=== PATIENT | male | born 1955 | race Caucasian/White ===

== ENCOUNTER 2017-06-09 13:10 | Inpatient (IN) | payer MEDICARE ==
[2017-06-09] VITALS (16 sets, daily range): BP systolic 107–143; BP diastolic 69–93; PULSE 62–145; RESP 14–20; TEMP 98–98.7; O2SAT 95–99
[~2017-06-09] VITALS: Ht 182.9 cm; Wt 104.8 kg
[2017-06-09] MEDS ORDERED: DILTIAZEM HCL 25 MG/5 ML VIAL IV PUSH ONE (13:30)
[2017-06-09] MEDS ORDERED: SODIUM CHLORIDE 0.9% FLUSH 10 ML FLUSH IVF PRN (13:30)
[2017-06-09] MEDS ORDERED: DILTIAZEM INJ 125 MG in SODIUM CHLORIDE 0.9% INJ 100 ML IV PRN (13:30)
--- NOTE | 2017-06-09 13:33 | PD ---
HPI Chief Complaint: Cardiac Complaint Time Seen by Provider: 13:16 Travel History International Travel<30 days: No Contact w/Intl Traveler<30days: No Traveled to known affect area: No History of Present Illness HPI 61-year-old male came to the emergency room with history of tachycardia that was noticed initially by him this morning when he tried to take his blood pressure. He noticed that his pulse rate was in the 190s. Patient says he was having some heartburn which made him take his blood pressure. He repeated this test at home and the heart rate was still in 180s to 190s when he decided to go see his primary care. He had a 12-lead EKG done at the primary care's office which showed narrow complex tachycardia with heart rate in 190. Patient was sent to the emergency room by EMS. However patient says this one stay put him in the ambulance and hooked him to the monitor his heart rate was down to the 80s. He also had slight headache but all the symptoms disappeared. No history of syncopal episode. No history of shortness of breath. Patient says that he has never had this kind of high heart rate in the past. When he was hooked up to our monitor his heart rate was in 140s to 160s and looks like atrial fibrillation. Blood pressure has been stable. Patient is awake and answering questions appropriately. His heartburn kind of chest discomfort was nonradiating. [facility] Past Medical History Narrative Medical List of his past medical, surgical, social and family history is reviewed from the nursing note. Social History Tobacco Use: No Allergies-Medications (Allergen,Severity, Reaction): Coded Allergies: lisinopril (Verified Allergy, Unknown, 06/09/17) headaches Comments List of his allergies reviewed from the nursing note. Reported Meds & Prescriptions Reported Meds & Active Scripts Active Reported Bactrim DS (Sulfamethoxazole-Trimethoprim) 800-160 Mg Tab 1 Tab PO BID Narrative Medication List of his home medications reviewed from the nursing note. Review of Systems Except as stated in HPI: all other systems reviewed are Neg Cardiovascular: Positive: Tachycardia Physical Exam Narrative GENERAL: Awake, alert, no obvious distress SKIN: Focused skin assessment warm/dry. HEAD: Atraumatic. Normocephalic. EYES: Pupils equal and round. No scleral icterus. No injection or drainage. ENT: No nasal bleeding or discharge. Mucous membranes pink and moist. NECK: Trachea midline. No JVD. CARDIOVASCULAR: Irregularly irregular rhythm, tachycardia. No murmur appreciated. RESPIRATORY: No accessory muscle use. Clear to auscultation. Breath sounds equal bilaterally. GASTROINTESTINAL: Abdomen soft, non-tender, nondistended. Hepatic and splenic margins not palpable. MUSCULOSKELETAL: No obvious deformities. No clubbing. No cyanosis. No edema. NEUROLOGICAL: Awake and alert. No obvious cranial nerve deficits. Motor grossly within normal limits. Normal speech. PSYCHIATRIC: Appropriate mood and affect; insight and judgment normal. Data Data Last Documented VS Vital Signs Date Time Temp Pulse Resp B/P (MAP) Pulse Ox O2 Delivery O2 Flow Rate FiO2 06/09/17 14:26 80 16 123/77 (92) 96 Room Air 06/09/17 13:15 98.3 Orders Orders Electrocardiogram (06/09/17 13:17) Basic Metabolic Panel (Bmp) (06/09/17 13:17) Ckmb (Isoenzyme) Profile (06/09/17 13:17) Complete Blood Count With Diff (06/09/17 13:17) Magnesium (Mg) (06/09/17 13:17) Prothrombin Time / Inr (Pt) (06/09/17 13:17) Act Partial Throm Time (Ptt) (06/09/17 13:17) Troponin I (06/09/17 13:17) Chest, Single Ap (06/09/17 13:17) Ecg Monitoring (06/09/17 13:17) Bilateral Bp Monitoring (06/09/17 13:17) Oximetry (06/09/17 13:17) Oxygen Administration (06/09/17 13:17) Sodium Chloride 0.9% Flush (Ns Flush) (06/09/17 13:30) Vital Signs (Adult) Q15MX4,Q4H (06/09/17 13:17) Lead Game Designer / Telemetry TASHA.Q8H (06/09/17 13:17) Cardiac Rhythm TASHA.Q8H (06/09/17 13:17) Notify Dr: Other (06/09/17 13:17) Diltiazem Inj (Cardizem Inj) (06/09/17 13:30) Diltiazem Inj (Cardizem Inj) (06/09/17 13:30) CKMB (06/09/17 13:20) CKMB% (06/09/17 13:20) Heparin Infusion TASHA.Q1H (06/09/17 14:12) Heparin Inj (Heparin Inj) (06/09/17 14:15) Heparin Inj (Heparin Inj) (06/09/17 20:15) Heparin Inj (Heparin Inj) (06/09/17 20:15) Heparin-D5w 25,000 U/250 Ml (Heparin-D5w (06/09/17 14:15) Act Partial Throm Time (Ptt) (06/09/17 21:12) Admit Order (Ed Use Only) (06/09/17 14:25) Labs Laboratory Tests Test 06/09/17 13:20 White Blood Count 5.4 TH/MM3 Red Blood Count 5.50 MIL/MM3 Hemoglobin 15.7 GM/DL Hematocrit 47.2 % Mean Corpuscular Volume 85.9 FL Mean Corpuscular Hemoglobin 28.5 PG Mean Corpuscular Hemoglobin Concent 33.2 % Red Cell Distribution Width 14.0 % Platelet Count 205 TH/MM3 Mean Platelet Volume 8.8 FL Neutrophils (%) (Auto) 67.0 % Lymphocytes (%) (Auto) 20.6 % Monocytes (%) (Auto) 9.0 % Eosinophils (%) (Auto) 2.9 % Basophils (%) (Auto) 0.5 % Neutrophils # (Auto) 3.6 TH/MM3 Lymphocytes # (Auto) 1.1 TH/MM3 Monocytes # (Auto) 0.5 TH/MM3 Eosinophils # (Auto) 0.2 TH/MM3 Basophils # (Auto) 0.0 TH/MM3 CBC Comment DIFF FINAL Differential Comment Prothrombin Time 10.3 SEC Prothromb Time International Ratio 0.9 RATIO Activated Partial Thromboplast Time 25.9 SEC Blood Urea Nitrogen 10 MG/DL Creatinine 1.02 MG/DL Random Glucose 100 MG/DL Calcium Level 8.6 MG/DL Magnesium Level 2.3 MG/DL Sodium Level 140 MEQ/L Potassium Level 4.0 MEQ/L Chloride Level 107 MEQ/L Carbon Dioxide Level 26.1 MEQ/L Anion Gap 7 MEQ/L Estimat Glomerular Filtration Rate 74 ML/MIN Total Creatine Kinase 355 U/L Creatine Kinase MB 10.4 NG/ML Creatine Kinase MB % 2.9 % Troponin I 0.22 NG/ML MDM Medical Decision Making Medical Screen Exam Complete: Yes Emergency Medical Condition: Yes Medical Record Reviewed: Yes Interpretation(s) Twelve-lead EKG was reviewed by me. Atrial fibrillation, RVR, normal axis. Heart rate of 137 bpm. Differential Diagnosis New-onset A. fib with RVR, atrial flutter with 2-1 block, ACS Narrative Course 2:34 PM blood test results are back and troponin is elevated. Patient was initially given 20 mg of Cardizem bolus with a drip. Once the troponin level was back I have ordered the heparin bolus and drip as well. Patient will need to be admitted [facility]. Current heart rate is in the 80s. Critical Care Narrative Aggregate critical care time was 45 minutes. Time to perform other separately billable procedures was not included in the critical care time. My time did not include minutes spent treating any other patients simultaneously or on activities that did not directly contribute to the patient's treatment. The services I provided to this patient were to treat and/or prevent clinically significant deterioration that could result in: A. fib with RVR, non-STEMI, Cardizem bolus and drip, heparin bolus and drip I provided critical care services requiring my management, as noted below: Chart data review, documentation time, medication orders and management, vital sign assessments/reviewing monitor data, ordering and reviewing lab tests, ordering and interpreting/reviewing x-rays and diagnostic studies, care of the patient and discussion of the patient with the admitting physicians. Procedures EKG Prior to Arrival: Yes Diagnosis Primary Impression: New onset a-fib Additional Impressions: Atrial fibrillation with RVR Non-STEMI (non-ST elevated myocardial infarction) Admitting Information Admitting Physician Requests: Admit Scripts Aspirin (Aspirin) 325 Mg Tab 325 MG PO DAILY for cad, #180 TAB 0 Refills Prov: Ha Kam MD 06/11/17 Atorvastatin (Atorvastatin) 40 Mg Tab 40 MG PO HS for cad, #30 TAB 3 Refills Prov: Ha Kam MD 06/11/17 Metoprolol Tartrate (Metoprolol Tartrate) 25 Mg Tab 25 MG PO Q12HR for cad, #60 TAB 3 Refills Prov: Ha Kam MD 06/11/17 Clopidogrel (Plavix) 75 Mg Tab 75 MG PO DAILY for cad, #30 TAB 3 Refills Prov: Ha Kam MD 06/11/17 Ann Gibbons MD Jun 09, 2017 13:33
[2017-06-09 13:40] LABS: AUTOMATED NEUTROPHIL # 3.6 TH/MM3 (1.8-7.7); BASOPHIL % 0.5 % (0.0-2.0); EOSINOPHIL # 0.2 TH/MM3 (0-0.4); EOSINOPHIL % 2.9 % (0.0-4.0); HEMATOCRIT 47.2 % (39.0-51.0); HEMO FLAGS DIFF FINAL; LYMPH % 20.6 % (9.0-44.0); LYMPHOCYTE # 1.1 TH/MM3 (1.0-4.8); MEAN CELL VOLUME 85.9 FL (80.0-100.0); MEAN CORPUSCULAR HEMOGLOBIN 28.5 PG (27.0-34.0); MEAN CORPUSCULAR HGB CONC 33.2 % (32.0-36.0); PLATELET COUNT 205 TH/MM3 (150-450); WHITE BLOOD COUNT 5.4 TH/MM3 (4.0-11.0)
--- NOTE | 2017-06-09 13:43 | RADRPT ---
EXAM DATE/TIME: 06/09/2017 13:32 [place] COMPARISON: No previous studies available for comparison. INDICATIONS : Chest discomfort today, feels like heart is beating too fast MEDICAL HISTORY : None. SURGICAL HISTORY : 2 cysts removed from middle of back last week ENCOUNTER: Initial ACUITY: 1 day PAIN SCORE: 4/10 LOCATION: Bilateral chest FINDINGS: A single view of the chest demonstrates the lungs to be symmetrically aerated without evidence of mas s, infiltrate or effusion. The cardiomediastinal contours are unremarkable. Osseous structures are intact. CONCLUSION: No acute disease. Romain Curry MD FACR on June 09, 2017 at 13:41 Board Certified Radiologist. This report was verified electronically.
[2017-06-09] MEDS ORDERED: BACT800T5 PO (13:44)
[2017-06-09 13:50] LABS: BICARBONATE 26.1 MEQ/L (21.0-32.0); MAGNESIUM 2.3 MG/DL (1.5-2.5)
[2017-06-09 13:52] LABS: APTT (PATIENT) 25.9 SEC (24.3-30.1); INTERNATIONAL NORMALIZED RATIO 0.9 RATIO; PROTHROMBIN TIME - PATIENT 10.3 SEC (9.8-11.6)
[2017-06-09 14:07] LABS: CKMB 10.4 NG/ML (0.5-3.6)
[2017-06-09] MEDS ORDERED: HEPARIN-D5W 25,000 U/250 ML 250 ML IV PRN (14:15)
[2017-06-09] MEDS ORDERED: HEPARIN SODIUM - IV 10,000 UNITS/10 ML VIAL IV ONE (14:15)
--- NOTE | 2017-06-09 14:55 | HHI.HP ---
HPI Service [facility] Hospitalists Primary Care Physician Deyvi Sandoval MD Admission Diagnosis A. dandre with RVR, non-STEMI Chief Complaint: heart racing Travel History International Travel<30 Days: No Contact w/Intl Traveler <30 Da: No Traveled to Known Affected Are: No History of Present Illness This is a 61 year old male patient with a past medical history which includes arthritis, DDD, dyslipidemia and HTN. Patient awoke this AM with the feeling of heartburn. Patient then checked his BP because of the heart burn and HR was between 180-190 bpm. Patient then proceeded to his PCP's office and there a 12- lead EKG showed narrow complex tachycardia with heart rate in 190bpm. EMS was called to transport patient to ER. However once EMS arrived their monitor revealed a heart rate in the 80s. Patient reports he then felt better, he no longer felt his heart racing or heart burn. Patient then decided to drive himself to the hospital. 12 lead EKG here at [facility] revealed Atrial Fibrillation RVR rate 137 bpm. Patient denies specific chest pain, radiation of heart burn, shortness of breath , feeling dizzy or lightheaded. Patient reports he had a similar sensation about 1 year ago when his and he passed out at that time. Patient's main concern is when he can go home to tend to his dog. Review of Systems Constitutional: DENIES: Fatigue, Fever, Chills Eyes: DENIES: Blurred vision, Diplopia, Vision loss Respiratory: DENIES: Cough, Sputum production, Shortness of breath Cardiovascular: COMPLAINS OF: Palpitations, DENIES: Chest pain, Dyspnea on Exertion, Lower Extremity Edema Gastrointestinal: DENIES: Abdominal pain, Constipation, Diarrhea Neurologic: DENIES: Abnormal gait, Localized weakness, Speech Problems Psychiatric: DENIES: Anxiety, Confusion, Depression Past Family Social History Past Medical History DDD, dyslipidemia and HTN- no longer on HTN medication after weight loss Past Surgical History Inguinal hernia repair Rotator cuff surgery umbilical hernia repair Reported Medications Bactrim DS (Sulfamethoxazole-Trimethoprim) 800-160 Mg Tab 1 Tab PO BID Allergies: Coded Allergies: lisinopril (Verified Allergy, Unknown, 06/09/17) headaches Active Ordered Medications Current Medications Medications (Trade) Dose Ordered Sig/Anny Route Start Time Stop Time Status Last Admin (NS Flush) 2 ml UNSCH PRN IVF 06/09/17 13:30 Diltiazem HCl 125 mg/Sodium Chloride 125 ml @ 5 mls/hr TITRATE PRN IV 06/09/17 13:30 06/09/17 13:32 (Heparin Inj) 5,000 units UNSCH PRN IV 06/09/17 20:15 (Heparin Inj) 2,500 units UNSCH PRN IV 06/09/17 20:15 Heparin Sodium/ Dextrose 250 ml @ 10 mls/hr TITRATE PRN IV 06/09/17 14:15 Family History noncontributory Social History rare ETOH use 1-2 drinks every few months denies tobacco use marijuana nightly denies other illicit drug use Physical Exam Vital Signs Vital Signs Date Time Temp Pulse Resp B/P (MAP) Pulse Ox O2 Delivery O2 Flow Rate FiO2 06/09/17 14:26 80 16 123/77 (92) 96 Room Air 06/09/17 14:20 100 16 121/80 (94) 95 Room Air 06/09/17 14:01 102 16 124/78 (93) 96 Room Air 06/09/17 13:32 98 135/86 06/09/17 13:20 20 95 Room Air 06/09/17 13:20 91 20 107/78 (88) 96 Room Air 06/09/17 13:15 98.3 145 20 135/86 (102) 96 Physical Exam GENERAL: This is a well-nourished, well-developed patient SKIN: two surgical incisions on back healing well sutures intact HEAD: Atraumatic. Normocephalic. No temporal or scalp tenderness. EYES: Extraocular motions intact. No scleral icterus. No injection or drainage. CARDIOVASCULAR: irregularly irregular tachycardic RESPIRATORY: Clear to auscultation. Breath sounds equal bilaterally. GASTROINTESTINAL: Abdomen soft, non-tender, nondistended. MUSCULOSKELETAL: Extremities without clubbing, cyanosis, or edema. No joint tenderness, effusion, or edema noted. No calf tenderness. Negative Homans sign bilaterally. NEUROLOGICAL: Awake and alert. No focal deficits noted. Motor and sensory grossly within normal limits. Five out of 5 muscle strength in all muscle groups. Normal speech. Laboratory Laboratory Tests Test 06/09/17 13:20 White Blood Count 5.4 Red Blood Count 5.50 Hemoglobin 15.7 Hematocrit 47.2 Mean Corpuscular Volume 85.9 Mean Corpuscular Hemoglobin 28.5 Mean Corpuscular Hemoglobin Concent 33.2 Red Cell Distribution Width 14.0 Platelet Count 205 Mean Platelet Volume 8.8 Neutrophils (%) (Auto) 67.0 Lymphocytes (%) (Auto) 20.6 Monocytes (%) (Auto) 9.0 Eosinophils (%) (Auto) 2.9 Basophils (%) (Auto) 0.5 Neutrophils # (Auto) 3.6 Lymphocytes # (Auto) 1.1 Monocytes # (Auto) 0.5 Eosinophils # (Auto) 0.2 Basophils # (Auto) 0.0 CBC Comment DIFF FINAL Differential Comment Prothrombin Time 10.3 Prothromb Time International Ratio 0.9 Activated Partial Thromboplast Time 25.9 Blood Urea Nitrogen 10 Creatinine 1.02 Random Glucose 100 Calcium Level 8.6 Magnesium Level 2.3 Sodium Level 140 Potassium Level 4.0 Chloride Level 107 Carbon Dioxide Level 26.1 Anion Gap 7 Estimat Glomerular Filtration Rate 74 Total Creatine Kinase 355 Creatine Kinase MB 10.4 Creatine Kinase MB % 2.9 Troponin I 0.22 Result Diagram: 06/09/17 1320 06/09/17 1320 Imaging Last Impressions Chest X-Ray 06/09/17 1317 Signed Impressions: Service Date/Time: Friday, June 09, 2017 13:32 - CONCLUSION: No acute disease. Romain Curry MD FACR Caprini VTE Risk Assessment Caprini VTE Risk Assessment: Mod/High Risk (score >= 2) Caprini Risk Assessment Model Point Value = 1 Point Value = 2 Point Value = 3 Point Value = 5 Age 41-60 Minor surgery BMI > 25 kg/m2 Swollen legs Varicose veins or History of unexplained or recurrent spontaneous Oral contraceptives or hormone replacement Sepsis (< 1 month) Serious lung disease, including pneumonia (< 1 month) Abnormal pulmonary function Acute myocardial infarction Congestive heart failure (< 1 month) History of inflammatory bowel disease Medical patient at bed rest Age 61-74 Arthroscopic surgery Major open surgery (> 45 min) Laparoscopic surgery (> 45 min) Malignancy Confined to bed (> 72 hours) Immobilizing plaster cast Central venous access Age >= 75 History of VTE Family history of VTE Factor V Leiden Prothrombin [id number] Lupus anticoagulant Anticardiolipin antibodies Elevated serum homocysteine Heparin-induced thrombocytopenia Other congenital or acquired thrombophilia Stroke (< 1 month) Elective arthroplasty Hip, pelvis, or leg fracture Acute spinal cord injury (< 1 month) Prophylaxis Regimen Total Risk Factor Score Risk Level Prophylaxis Regimen 0-1 Low Early ambulation 2 Moderate Order ONE of the following: *Sequential Compression Device (SCD) *Heparin 5000 units SQ BID 3-4 Higher Order ONE of the following medications: *Heparin 5000 units SQ TID *Enoxaparin/Lovenox 40 mg SQ daily (WT < 150 kg, CrCl > 30 mL/min) *Enoxaparin/Lovenox 30 mg SQ daily (WT < 150 kg, CrCl > 10-29 mL/min) *Enoxaparin/Lovenox 30 mg SQ BID (WT < 150 kg, CrCl > 30 mL/min) AND/OR *Sequential Compression Device (SCD) 5 or more Highest Order ONE of the following medications: *Heparin 5000 units SQ TID (Preferred with Epidurals) *Enoxaparin/Lovenox 40 mg SQ daily (WT < 150 kg, CrCl > 30 mL/min) *Enoxaparin/Lovenox 30 mg SQ daily (WT < 150 kg, CrCl > 10-29 mL/min) *Enoxaparin/Lovenox 30 mg SQ BID (WT < 150 kg, CrCl > 30 mL/min) AND *Sequential Compression Device (SCD) Assessment and Plan Problem List: (1) New onset a-fib ICD Codes: I48.91 - Unspecified atrial fibrillation Status: Acute Plan: New onset A fib RVR EKG reviewed and reveals A fib RVR rate 137 bpm troponin elevated 0.22, denies chest pain, possibly demand related will trend serial troponin and continue to monitor serial EKG if troponin rises will consult cardiology patient started on heparin drip in ER Patient also started on Cardizem drip in ER with bolus 2D echocardiogram ordered HTN patient reports he is no longer on medication after weight loss monitor BP trend Dyslipidemia not on home medications check fast lipid panel in AM healing surgical incision back wound care consult placed DVT prophylaxis patient on heparin drip (2) Atrial fibrillation with RVR ICD Codes: I48.91 - Unspecified atrial fibrillation Status: Acute (3) HTN (hypertension) ICD Codes: I10 - Essential (primary) hypertension (4) Dyslipidemia ICD Codes: E78.5 - Hyperlipidemia, unspecified Assessment and Plan Patient examined. Assessment and plan formulated with Niya ISABEL I agree with the above. afib/rvr. new onset. mild cp with elevated trop. tachycardia related vs nstemi. trend troponin. heparin. asa. cardizem gtt. will plan for cardiology consult. pt is possibly going to leave AMA.. Physician Certification 2 Midnight Certification Type: Admission for Inpatient Services Order for Inpatient Services The services are ordered in accordance with Medicare regulations or non- Medicare payer requirements, as applicable. In the case of services not specified as inpatient-only, they are appropriately provided as inpatient services in accordance with the 2-midnight benchmark. Estimated LOS (days): 3 days is the estimated time the patient will need to remain in the hospital, assuming treatment plan goals are met and no additional complications. Post-Hospital Plan: Home Niya Vazquez Jun 09, 2017 14:55 Ha Kam MD Jun 09, 2017 16:21
[2017-06-09] MEDS ORDERED: NALOXONE HCL 0.4 MG/ML AMP IV PUSH PRN (15:15)
[2017-06-09] MEDS ORDERED: MAGNESIUM HYDROXIDE SUSP 30 ML CUP PO PRN (15:15)
[2017-06-09] MEDS ORDERED: ACETAMINOPHEN 325 MG TAB PO PRN (15:15)
[2017-06-09] MEDS ORDERED: ONDANSETRON HCL 4 MG/2 ML VIAL IVP PRN (15:15)
[2017-06-09] MEDS ORDERED: SODIUM CHLORIDE 0.9% FLUSH 10 ML FLUSH IV FLUSH PRN (15:15)
[2017-06-09] MEDS ORDERED: HEPARIN SODIUM - IV 10,000 UNITS/10 ML VIAL IV PRN ×2 (20:15)
[2017-06-09] MEDS: DOCUSATE SODIUM 50 MG/SENNA 8.6 MG TAB PO SCH (21:00)
[2017-06-09] MEDS: SODIUM CHLORIDE 0.9% FLUSH 10 ML FLUSH IV FLUSH SCH (21:00)
[2017-06-09] MEDS ORDERED: ACETAMINOPHEN/HYDROcodone 325 MG/5 MG TAB PO PRN (21:15)
[2017-06-09] MEDS ORDERED: NITROGLYCERIN 0.4 MG SL 25 TABS/BTL SL PRN (21:15)
[2017-06-09] MEDS ORDERED: ASPIRIN 81 MG CHEW TAB CHEW ONE (21:15)
[2017-06-09] MEDS: TEMAZEPAM 15 MG CAP PO PRN (21:34)
[2017-06-09 22:14] LABS: APTT (PATIENT) 47.8 SEC (24.3-30.1)
[2017-06-10] VITALS (24 sets, daily range): BP systolic 121–154; BP diastolic 81–94; PULSE 58–85; RESP 16–20; TEMP 98–98.6; O2SAT 96–98
[2017-06-10 01:36] LABS: BASOPHIL % 0.5 % (0.0-2.0); EOSINOPHIL # 0.2 TH/MM3 (0-0.4); EOSINOPHIL % 3.2 % (0.0-4.0); HEMATOCRIT 44.4 % (39.0-51.0); HEMO FLAGS DIFF FINAL; LYMPHOCYTE # 2.3 TH/MM3 (1.0-4.8); MEAN CELL VOLUME 85.7 FL (80.0-100.0); MEAN CORPUSCULAR HEMOGLOBIN 29.1 PG (27.0-34.0); MEAN CORPUSCULAR HGB CONC 33.9 % (32.0-36.0); MONO % 9.1 % (0.0-8.0); NEUT % 55.2 % (16.0-70.0); PLATELET COUNT 190 TH/MM3 (150-450); RED BLOOD COUNT 5.18 MIL/MM3 (4.50-5.90); RED CELL DISTRIBUTION WIDTH 13.6 % (11.6-17.2); WHITE BLOOD COUNT 7.2 TH/MM3 (4.0-11.0)
[2017-06-10 01:48] LABS: BICARBONATE 25.9 MEQ/L (21.0-32.0); POTASSIUM 3.8 MEQ/L (3.5-5.1)
[2017-06-10 01:52] LABS: HDL CHOLESTEROL 48.6 MG/DL (40.0-60.0)
[2017-06-10 07:12] LABS: APTT (PATIENT) 42.3 SEC (24.3-30.1)
[2017-06-10] MEDS ORDERED: HEPARIN-NS/PF INJ 1,000 ML ONE (08:20)
[2017-06-10] MEDS ORDERED: SODIUM CHLORID 0.9% 500 ML INJ 500 ML ONE (08:20)
[2017-06-10] MEDS ORDERED: HEPARIN SODIUM - IV 10,000 UNITS/10 ML VIAL ONE (08:20)
[2017-06-10] MEDS ORDERED: NITROGLYCERIN INJ 5 ML ONE (08:20)
[2017-06-10] MEDS ORDERED: MIDAZOLAM HCL 2 MG/2 ML VIAL ONE ×3 (08:21→08:58)
--- NOTE | 2017-06-10 08:51 | HHI.PR ---
Subjective Remarks no cp or sob Objective Vitals heart reg lung cta abd s/nt ext no edema Vital Signs Date Time Temp Pulse Resp B/P (MAP) Pulse Ox O2 Delivery O2 Flow Rate FiO2 06/10/17 06:00 70 06/10/17 05:00 84 06/10/17 04:00 58 06/10/17 03:30 75 16 149/89 (109) 97 06/10/17 03:00 66 06/10/17 02:00 68 06/10/17 01:00 72 06/10/17 00:00 60 06/09/17 23:00 98.0 71 16 121/69 (86) 97 06/09/17 23:00 62 06/09/17 22:45 16 06/09/17 22:00 70 06/09/17 21:00 70 06/09/17 20:30 75 128/79 06/09/17 20:00 97 21 06/09/17 20:00 84 06/09/17 19:30 98.7 75 14 128/79 (95) 96 06/09/17 19:00 84 06/09/17 18:00 76 06/09/17 17:45 74 06/09/17 17:16 72 20 143/93 (110) 99 06/09/17 15:46 77 18 138/80 (99) 96 Room Air 06/09/17 15:45 06/09/17 14:30 117 16 123/83 (96) 96 Room Air 06/09/17 14:26 80 16 123/77 (92) 96 Room Air 06/09/17 14:20 100 16 121/80 (94) 95 Room Air 06/09/17 14:01 102 16 124/78 (93) 96 Room Air 06/09/17 13:32 98 135/86 06/09/17 13:20 20 95 Room Air 06/09/17 13:20 91 20 107/78 (88) 96 Room Air 06/09/17 13:15 98.3 145 20 135/86 (102) 96 Result Diagram: 06/10/1710006/10/17100 Imaging Last Impressions Chest X-Ray 06/09/17 1317 Signed Impressions: Service Date/Time: Friday, June 09, 2017 13:32 - CONCLUSION: No acute disease. Romain Curry MD FACR A/P Problem List: (1) New onset a-fib ICD Codes: I48.91 - Unspecified atrial fibrillation Status: Acute Plan: 1. new afib/rvr 2. nstemi 3. htn 4. hyperlipidemia pt currently on heparin gtt and cardizem gtt discussed with pt and dr [facility] today planned. will plan for conversion of cardizem to bb (2) Non-STEMI (non-ST elevated myocardial infarction) ICD Codes: I21.4 - Non-ST elevation (NSTEMI) myocardial infarction Status: Acute (3) Atrial fibrillation with RVR ICD Codes: I48.91 - Unspecified atrial fibrillation Status: Acute (4) HTN (hypertension) ICD Codes: I10 - Essential (primary) hypertension Status: Chronic (5) Dyslipidemia ICD Codes: E78.5 - Hyperlipidemia, unspecified Status: Chronic Ha Kam MD Jun 10, 2017 08:51
[2017-06-10] MEDS ORDERED: STERILE WATER FOR INJECTION 10 ML VIAL ONE (08:52)
[2017-06-10] MEDS ORDERED: BIVALIRUDIN 250 MG VIAL ONE (08:52)
[2017-06-10] MEDS: DOCUSATE SODIUM 50 MG/SENNA 8.6 MG TAB PO SCH ×2 (09:00→21:00)
[2017-06-10] MEDS ORDERED: NITROGLYCERIN 0.4 MG SL 25 TABS/BTL SL ONE (09:15)
[2017-06-10] MEDS ORDERED: CLOPIDOGREL 75 MG TAB ONE (09:19)
[2017-06-10] MEDS ORDERED: MISC INFORMATION XX ONE (09:30)
[2017-06-10] MEDS ORDERED: LIDOCAINE 2% JELLY 30 ML TUBE TOP PRN (09:30)
[2017-06-10] MEDS ORDERED: MORPHINE SULFATE 4 MG/ML INJ IV PUSH PRN (09:30)
--- NOTE | 2017-06-10 09:30 | CATHPROC ---
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 Equipment Time Wound/Ostomy Nurse Description Size Mfg Part Number Used/Scraped [id number] 08:51 [employer] CRITICAL CARE WIRE, Betabrand PROWATER 180CM 180CM Used *[id number] TRANSDUCER, TRUWAVE [id number] 08:21 TAPIA DELGADO * Used W/STOCKCOCK *[id number] BALLOON, 4.5 15[place] [id number] 09:08 [employer]ON SCIENTIFIC 4.5 15MM Used QUANTUM APEX MR *[id number] [phone] *[id number] [phone] *[id number] *[id number] [phone] *[id number] 08:21 [id number] INDUSTRIES PACK, CCL CUSTOM * Used *[id number] 08:21 Efficient Power Conversion SUPPORT, ARTERIAL ADULT 21996 *[id number] Used [id number] 08:21 MEDLINE PACER PEN, SKIN DUAL W/ RULER * Used *[id number] 08:59 MEDTRONIC BALLOON, 3.0 X 20MM EUPHORA 20MM Used *[id number] STENT, 3.5 38 RESOLUTE [id number] 09:04 MEDTRONIC 3.5 38 Used INTEGRITY RX *[id number] 09:00 Acousticeye 30 ANTHONY INDEFLATOR Used *[id number] BAND, RADIAL COMPRESSION TR [id number] 09:15 [employer] MEDICAL 29CM Used LARGE 29 *[id number] SHEATH, FR6 RADIAL PRELUDE 08:21 Acousticeye FR 6 [id number] Used EASE 11CM [id number] 08:21 Acousticeye WIRE, EXCHANGE 260CM 3MMJ 260CM Used *[id number] 08:21 [employer]COMED OMNIPAQUE, 350 MG, 150ML 150ML [id number] Used [id number] 08:21 [facility] BLANKET,WARM AIR CCL * Used *[id number] Equipment Model, Serial, Lot Number and Expiration Data Description Model Number Serial Number Lot Number Expiration Date STENT, 3.5 38 RESOLUTE [id number] 01-02-2019 INTEGRITY RX History: Allergies Allergy Reaction lisinopril History: Risk Factors Family History of Hypertension Dyslipidemia Previous HI Previous Heart Failure Premature CAD Yes Yes No Yes No Prior Valve Prior PCI Prior CABG Surgery No No No Cerebrovascular Peripheral Artery Chronic Lung On Dialysis Diabetes Disease Disease Disease No No No No No Labs Hgb (g/dl) Hct (%) WBC (l/cumm) Platelets (thousands) 11.60-17.00 35.00-51.00 4.00-11.00 150.00-450.00 15.1 44.4 7.2 190 Glucose (mg/dl) BUN (mg/dl) Creatinine (mg/dl) BUN:Creatinine (1:x) 74.00-106.00 7.00-18.00 0.50-1.30 10.00-20.00 89 12 0.9 13.3 Na (meq/l) K (meq/l) 136.00-145.00 3.50-5.10 140 3.8 INR (PTT:PT) 0.90-1.10 0.9 Medication Medication Total Dose (Bolus/Oral) Medication Total Dosage/Unit 1% XYLOCAINE 20 mL ANGIOMAX BOLUS 16 mL FENTANYL 150 mcg NITROGLYCERIN S/L 0.4 mg OXYGEN 2 l/min PLAVIX 600 mg RADIAL COCKTAIL 5 mL (Bolus) VERSED 6 mg Medications (Bolus/Oral) Medication Time Given Dosage/Unit Administered By Reason FENTANYL 06/10/2017 8:35:51 AM 50 mcg Rittenour, Maria Elena 50 mcg FENTANYL given in lab by Maria Elena Blair BSRN in Left Forearm via Peripheral IV. Ordered by Nithin Zamudio. VERSED 06/10/2017 8:36:11 AM 2 mg Rittenour, Maria Elena 2 mg VERSED given in lab by Maria Elena Blair BSRN in Left Forearm via Peripheral IV. Ordered by Nithin Branch. FENTANYL 06/10/2017 8:39:49 AM 50 mcg Rittenour, Maria Elena 50 mcg FENTANYL given in lab by Maria Elena Blair BSRN in Left Forearm via Peripheral IV. Ordered by Nithin Zamudio. 1% XYLOCAINE 06/10/2017 8:40:42 AM 20 mL Nithin Zamudio 20 mL 1% XYLOCAINE given in lab by Nithin Zamudio in Right Radial via Subcutaneous. Ordered by Nithin Zamudio. VERSED 06/10/2017 8:41:40 AM 2 mg Rittenkayla, Maria Elena 2 mg VERSED given in lab by Maria Elena Blair BSRN in Left Forearm via Peripheral IV. Ordered by Nithin Branch. RADIAL COCKTAIL 06/10/2017 8:42:54 AM 5 mL (Bolus) Nithin Zamudio 5 mL (Bolus) RADIAL COCKTAIL given in lab by Nithin Zamudio in Right Radial via Radial. Using [Soluti on Name]. Ordered by Nithin Zamudio. 200 NITRO OXYGEN 06/10/2017 8:45:36 AM 2 l/min Maria Elena Blair 2 l/min OXYGEN given in lab by Maria Elena Blair BSRN via Nasal. Ordered by Nithin Zamudio. ANGIOMAX BOLUS 06/10/2017 8:55:13 AM 16 mL Maria Elena Blair 16 mL ANGIOMAX BOLUS given in lab by Maria Elena Blair BSRN in Left Forearm via Peripheral IV. Ordere d by Nithin Zamudio. VERSED 06/10/2017 8:59:41 AM 2 mg Rittenkayla, Maria Elena 2 mg VERSED given in lab by Maria Elena Blair BSRN in Left Forearm via Peripheral IV. Ordered by Nithin Branch. FENTANYL 06/10/2017 9:01:00 AM 50 mcg Anastasiyatenkayla, Maria Elena 50 mcg FENTANYL given in lab by Maria Elena Blair BSRN in Left Forearm via Peripheral IV. Ordered by Nithin Zamudio. NITROGLYCERIN S/L 06/10/2017 9:16:01 AM 0.4 mg Rossy, Maria Elena 0.4 mg NITROGLYCERIN S/L given in lab by Maria Elena Blair BSRN via Sublingual. Ordered by Jarad Zamudio. PLAVIX 06/10/2017 9:22:49 AM 600 mg Anastasiyatenkayla, Maria Elena 600 mg PLAVIX given in lab by Maria Elena Blair BSRN via Oral. Ordered by Nithin Zamudio. Medication (Drip) Medication Time Given Dosage/Unit Concentration/Unit Diluent (ml) Solution ANGIOMAX DRIP 06/10/2017 8:57:47 AM 1.75 mg/kg/hr 250 mg 50 NaCl .9 1.75 mg/kg/hr ANGIOMAX DRIP given in lab by Maria Elena Blair BSRN in Left Forearm via Peripheral IV. Pump/Drip Flow = 36.72 ml/hr using NaCl .9 with a concentration of 250 mg in 50 ml. Ordered by Nithin Zamudio. CARDIZEM 06/10/2017 8:21:45 AM 10 mL/hr mL Patient arrived on 10 mL/hr CARDIZEM given by yumiko calderon in Right Antecubital via Peripheral IV . Pump/Drip Flow = 0 ml/hr using [Solution Name]. Ordered by Nithin Zamudio. IV Solutions 06/10/2017 8:21:49 AM 0 mL (IV) 500 NaCl .9 IV Solutions given in lab by Maria Elena Blair BSRN in Left Forearm via Peripheral IV. Pump/Drip Flow = 20 ml/hr using NaCl .9. Ordered by Nithin Zamudio. Initial Case Assessment Cardiovascular HR NIBP 75 146/92 Edema Present Skin color Skin None Normal Warm Dry Circulatory - Right Pulses Dorsalis Pedis Femoral Radial 3 3 3 Scale (0,1,2,3,4,d) Circulatory - Left Pulses Dorsalis Pedis Femoral Radial 3 3 Scale (0,1,2,3,4,d) Neurological State Oriented to time-place- Alert Moves all extremities person Respiration - General Respiration Rate SpO2 (%) (B/min) 14 97 Final Case Assessment Cardiovascular HR NIBP 80 126/81 Edema Present Skin color Skin None Normal Warm Dry Circulatory - Right Pulses Dorsalis Pedis Femoral Radial 3 3 3 Scale (0,1,2,3,4,d) Circulatory - Left Pulses Dorsalis Pedis Femoral Radial 3 3 Scale (0,1,2,3,4,d) Neurological State Oriented to time-place- Alert Moves all extremities person Respiration - General Respiration Rate SpO2 (%) (B/min) 13 93 Chronological Log Time Study Chronological Log 8:20:53 Patient arrived via Bed. 8:20:54 Patient Name, D.O.B, / Armband Verified By [email or web address]. 8:20:54 Consent signed by the physician and the patient and verified by the Oil Burner [employer]airer staff. Vitals capture started with the following parameters, Patient=Adult, Interval=2 min, Initial Pr zzczkl=459 mmHg, 8:20:56 Deflation Rate=5 mmHg, Cuff placed on Left Arm 8:20:58 Pre-op and post- op instructions given; patient acknowledges understanding of instructions. 8:21:02 Allens test performed on the right radial and ulnar artery. 8:21:05 Patient has been NPO for More than 6Hrs. 8:21:05 NO Skin Breakdown- 8:21:43 A # 20 IV was noted in the Antecubital (right). Grade = 0 8:21:44 A # 20 IV was noted in the Forearm (left). Grade = 0 Patient arrived on 10 mL/hr CARDIZEM given by cathlab cathelia in Right Antecubital via Periphe ral IV. Pump/Drip Flow 8:21:45 = 0 ml/hr using [Solution Name]. Ordered by Nitihn Zamudio. 8:21:46 History and physical on the chart or being dictated. IV Solutions given in lab by Maria Elena Blair BSRN in Left Forearm via Peripheral IV. Pump/Dri p Flow = 20 ml/hr using 8:21:49 NaCl .9. Ordered by Nithin Zamudio. 8:22:04 HR=75 bpm, ESOU=960/92 mmhg, SpO2=97.0 %, Resp=14 B/min, Pain=0, Minerva=10, Armstrong=2 Assessment: Initial Case, HR=75 BPM, WMAP=140/92 mmhg, Edema=None, Color=Normal, Skin = Warm, Dr y Right Pulses: Donta Ped=3, Femoral=3, Radial=3 8:23:10 Left Pulses: Donta Ped=3, Femoral=3 Neurological: State=Alert, Ox3, LOWE Respiration: Resp=14 B/min, SpO2=97 % 8:23:32 HR=75 bpm, JEMR=941/90 mmhg, SpO2=97.0 %, Resp=15 B/min, Pain=0, Minerva=10, Armstrong=2 8:25:33 HR=74 bpm, MGRD=154/92 mmhg, SpO2=96.0 %, Resp=12 B/min, Pain=0, Minerva=10, Armstrong=2 8:26:22 Reference ECG taken 8:27:59 HR=84 bpm, RVOF=707/90 mmhg, SpO2=95.0 %, Resp=13 B/min, Pain=0, Minerva=10, Armstrong=2 8:29:31 HR=76 bpm, CPTP=282/95 mmhg, SpO2=96 %, Resp=15 B/min, Pain=0, Minerva=10, Armstrong=2 8:31:34 HR=81 bpm, EOJZ=533/103 mmhg, SpO2=96.0 %, Resp=16 B/min, Pain=0, Minerva=10, Armstrong=2 8:32:59 Right Radial and groin(s) prepped with 2% chlorhexidine, and draped after a 3 min. waiting t shaan. 8:33:18 HEPARIN DRIP DISCONTINUED 0750 8:33:35 HR=75 bpm, MGJG=188/92 mmhg, SpO2=95.0 %, Resp=12 B/min, Pain=0, Minerva=10, Armstrong=2 8:35:35 HR=75 bpm, NANJ=110/91 mmhg, SpO2=95.0 %, Resp=13 B/min, Pain=0, Minerva=10, Armstrong=2 50 mcg FENTANYL given in lab by Maria Elena Blair BSRN in Left Forearm via Peripheral IV. Ordere d by Robb 8:35:51 Nithin. 8:36:11 2 mg VERSED given in lab by Maria Elena Blair BSRN in Left Forearm via Peripheral IV. Ordere d by Nithin Zamudio. 8:37:21 MD arrived. 8:37:34 HR=74 bpm, SNTM=944/86 mmhg, Resp=17 B/min, Pain=0, Minerva=10, Armstrong=2 8:39:33 HR=77 bpm, PZKY=866/79 mmhg, SpO2=94.0 %, Resp=14 B/min, Pain=0, Minerva=10, Armstrong=2 8:39:44 Pressure channel 1 zeroed. 50 mcg FENTANYL given in lab by Maria Elena Blair BSRN in Left Forearm via Peripheral IV. Ordere d by Robb, 8:39:49 Nithin. Time Out. Correct patient, correct procedure, correct physician, power injector not loaded with contrast with surgical 8:40:14 team present. Time Out Concurred by MD and individual staff in procedure. 8:40:40 Case Start 8:40:42 20 mL 1% XYLOCAINE given in lab by Nithin Zamudio in Right Radial via Subcutaneous. Ordered by Nithin Zamudio. 8:41:34 HR=75 bpm, FJUW=948/80 mmhg, SpO2=94 %, Resp=15 B/min, Pain=0, Minerva=10, Armstrong=2 8:41:40 2 mg VERSED given in lab by Maria Elnea Blair BSRN in Left Forearm via Peripheral IV. Ordere d by Nithin Zamudio. 8:42:01 Access site was Radial Artery. A SHEATH, FR6 RADIAL PRELUDE EASE 11CM FR 6 was advanced into the Radial (right) using the Modif ied Seldinger 8:42:09 technique. 8:42:18 In the Radial (right) the SHEATH, FR6 RADIAL PRELUDE EASE 11CM FR [address] by Nithin Zamudio. 5 mL (Bolus) RADIAL COCKTAIL given in lab by Nithin Zamudio in Right Radial via Radial. Using [S olution Name]. 8:42:54 Ordered by Nithin Zamudio. 200 NITRO A JR 5.0 GUIDE CATHETER FR 6 was advanced over a wire. OMNIPAQUE, 350 MG, 150ML 150ML was used f or 8:43:15 injections. 8:43:35 HR=81 bpm, HJQD=550/73 mmhg, SpO2=93 %, Resp=17 B/min, Pain=0, Minerva=10, Armstrong=2 8:44:55 Pressure channel 1 zeroed. Recorded Pressure: LV, HR=79, Condition=Condition 1 8:45:05 (Left Ventricle) LV 116/7/11 Recorded Pressure: LV, Ao, HR=85, Condition=Condition 1 8:45:23 (Left Ventricle) LV 114/10/20, (Aorta) Ao 114/74/92 8:45:31 HR=74 bpm, MBGK=994/71 mmhg, SpO2=93.0 %, Resp=12 B/min, Pain=0, Minerva=10, Armstrong=2 8:45:36 2 l/min OXYGEN given in lab by Maria Elena Blair BSRN via Nasal. Ordered by Nithin Zamudio. 8:46:07 The RCA was injected and visualized at various angles. OMNIPAQUE, 350 MG, 150ML 150ML used. After removing the current catheter a JL 3.5 INFINITI CATHETER FR 6 was advanced over a WIRE, EX CHANGE 260CM 8:46:48 3MMJ 260CM. 8:48:02 The LCA was injected and visualized at various angles. OMNIPAQUE, 350 MG, 150ML 150ML used. 8:48:09 HR=72 bpm, RPLF=532/69 mmhg, SpO2=93.0 %, Resp=14 B/min, Pain=0, Minerva=10, Armstrong=2 8:49:33 HR=75 bpm, TCEX=885/69 mmhg, SpO2=93.0 %, Resp=15 B/min, Pain=0, Minerva=10, Armstrong=2 8:51:34 HR=70 bpm, YFUK=169/77 mmhg, SpO2=95.0 %, Resp=19 B/min, Pain=0, Minerva=10, Armstrong=2 After removing the current catheter a AL 1.5 GUIDE CATHETER FR 6 was advanced over a WIRE, EXCHA NGE 260CM 8:52:25 3MMJ 260CM. 8:53:35 HR=74 bpm, CWIV=060/74 mmhg, SpO2=94.0 %, Resp=17 B/min, Pain=0, Minerva=10, Armstrong=2 After removing the current catheter a AL 3 GUIDE CATHETER FR 6 was advanced over a WIRE, EXCHANG E 260CM 8:54:40 3MMJ 260CM. 16 mL ANGIOMAX BOLUS given in lab by Maria Elena Blair BSRN in Left Forearm via Peripheral IV. O rdered by Robb, 8:55:13 Nithin. 8:55:34 HR=74 bpm, WHLF=764/75 mmhg, SpO2=95.0 %, Resp=18 B/min, Pain=0, Minerva=10, Armstrong=2 8:57:34 HR=75 bpm, BEIM=835/72 mmhg, SpO2=94.0 %, Resp=18 B/min, Pain=0, Minerva=10, Armstrong=2 1.75 mg/kg/hr ANGIOMAX DRIP given in lab by Maria Elena Blair BSRN in Left Forearm via Periphera l IV. Pump/Drip 8:57:47 Flow = 36.72 ml/hr using NaCl .9 with a concentration of 250 mg in 50 ml. Ordered by Alexandre Zamudio. 8:58:37 Interventional wire has crossed the lesion A BALLOON, 3.0 X 20MM EUPHORA 20MM was inserted over WIRE, ASAHI PROWATER 180CM 180CM via the OM 2 8:59:16 Prox. 8:59:33 HR=76 bpm, HQWB=915/77 mmhg, SpO2=96 %, Resp=15 B/min, Pain=0, Minerva=10, Armstrong=2 8:59:41 2 mg VERSED given in lab by Maria Elena Blair BSRN in Left Forearm via Peripheral IV. Ordere d by Nithin Zamudio. A BALLOON, 3.0 X 20MM EUPHORA 20MM over a WIRE, EXCHANGE 260CM 3MMJ 260CM in the OM2 Prox was in flated 9:00:18 using a 30 ANTHONY INDEFLATOR at 10 anthony for 30 sec. 50 mcg FENTANYL given in lab by Maria Elena Blair BSRN in Left Forearm via Peripheral IV. Ordere d by Robb, 9:01:00 Nithin. A BALLOON, 3.0 X 20MM EUPHORA 20MM over a WIRE, EXCHANGE 260CM 3MMJ 260CM in the OM2 Prox was in flated 9:01:13 using a 30 ANTHONY INDEFLATOR at 12 anthony for 25 sec. 9:01:32 HR=77 bpm, TCLB=046/83 mmhg, SpO2=97 %, Resp=18 B/min, Pain=0, Minerva=10, Armstrong=2 9:03:17 Balloon Removed. 9:03:39 HR=75 bpm, SOOV=215/69 mmhg, SpO2=92.0 %, Resp=18 B/min A STENT, 3.5 38 RESOLUTE INTEGRITY RX 3.5 38 was advanced through a AL 3 GUIDE CATHETER FR 6 ove r a WIRE, 9:04:24 ASAHI PROWATER 180CM 180CM. A STENT, 3.5 38 RESOLUTE INTEGRITY RX 3.5 38 was deployed using a 30 ANTHOYN INDEFLATOR at 9 atmosph eres for 20 9:05:35 seconds in the OM2 Prox. 9:05:36 HR=71 bpm, UDWU=478/68 mmhg, SpO2=95 %, Resp=18 B/min, Pain=0, Minerva=10, Armstrong=2 9:06:27 Delivery device removed A BALLOON, 4.5 15MM NC QUANTUM APEX MR 4.5 15MM was inserted over WIRE, ASAHI PROWATER 180CM 180 CM 9:07:32 via the OM2 Prox. 9:07:35 HR=67 bpm, FZAP=586/64 mmhg, SpO2=94 %, Resp=18 B/min, Pain=0, Minerva=10, Armstrong=2 A BALLOON, 4.5 15MM NC QUANTUM APEX MR 4.5 15MM over a WIRE, ASAHI PROWATER 180CM 180CM in the O M2 9:08:26 Prox was inflated using a 30 ANTHONY INDEFLATOR at 6 anthony for 16 sec. A BALLOON, 4.5 15MM NC QUANTUM APEX MR 4.5 15MM over a WIRE, ASAHI PROWATER 180CM 180CM in the O M2 9:09:07 Prox was inflated using a 30 ANTHONY INDEFLATOR at 16 anthony for 13 sec. 9:09:33 HR=69 bpm, BNGW=516/70 mmhg, SpO2=94 %, Resp=16 B/min 9:09:44 Balloon Removed. 9:11:36 HR=70 bpm, MBXA=766/76 mmhg, SpO2=93.0 %, Resp=13 B/min, Pain=0, Minerva=10, Armstrong=2 9:11:53 Wire removed 9:11:54 A WIRE, EXCHANGE 260CM 3MMJ 260CM was inserted via Radial (right). 9:12:03 Catheter was removed PCI QA completed: Pre-Leonardo - 3, Post Leonardo - 3, Type - ~TYPE~, Length - 33 mm, Morphology - ~MO RPHOLOGY~, 9:12:14 Indications - Lesion > 50 non-stem, Pre-Stenosis - 90% and Post Stenosis - 0%. 9:12:23 PCI QA obtained from Qc Analyst 9:12:30 Case End 9:13:35 HR=72 bpm, WHRN=855/86 mmhg, SpO2=96.0 %, Resp=15 B/min, Pain=4, Minerva=10, Armstrong=2 9:14:19 Catheter(s) removed without difficulty Radial Compression Device Used. 13 mLs of air placed in BAND, RADIAL COMPRESSION TR LARGE 29 2 9CM. Affected 9:14:44 hand 94 % O2 saturation. 9:15:36 HR=74 bpm, QEGP=849/87 mmhg, SpO2=95.0 %, Resp=12 B/min, Pain=4, Minerva=10, Armstrong=2 9:16:01 0.4 mg NITROGLYCERIN S/L given in lab by Maria Elena Blair BSRN via Sublingual. Ordered by Nithin Zamudio. 9:17:35 HR=80 bpm, WRBO=079/85 mmhg, SpO2=93 %, Resp=10 B/min, Pain=0, Minerva=10, Armstrong=2 9:18:43 No case complications noted. 9:18:46 Cine recording checked. 9:18:50 Bedside Report will be given. 9:18:53 Contrast Scanned 9:18:57 A Left Heart Cath was performed. 9:19:35 HR=81 bpm, SQDE=889/82 mmhg, SpO2=93 %, Resp=14 B/min, Pain=0, Minerva=10, Armstrong=2 9:21:36 HR=82 bpm, FPFC=299/81 mmhg, SpO2=93.0 %, Resp=15 B/min, Pain=0, Minerva=10, Armstrong=2 9:22:49 600 mg PLAVIX given in lab by Maria Elena Blair BSRAshley via Oral. Ordered by Nithin Zamudio. 9:23:34 Vitals capture stopped. 9:23:35 HR=80 bpm, QKIB=179/81 mmhg, SpO2=93.0 %, Resp=13 B/min, Pain=0, Minerva=10, Armstrong=2 Assessment: Final Case, HR=80 BPM, ESFS=531/81 mmhg, Edema=None, Color=Normal, Skin = Warm, Dr y Right Pulses: Donta Ped=3, Femoral=3, Radial=3 9:23:42 Left Pulses: Donta Ped=3, Femoral=3 Neurological: State=Alert, Ox3, LOWE Respiration: Resp=13 B/min, SpO2=93 % 9:27:46 Patient moved to stretcher End Study - Contrast Media Used In Study Contrast Total Opened (mL) Total Used (mL) Total Wasted (mL) Omnipaque 120 120 0 End Study - Maximum Contrast Load Max Contrast Load (mL) 582.8 End Study - Radiation Exposure Fluoro Time (minutes) 6.2 End Study - Patient Disposition Complications Transferred To Interventional Outcome No Telemetry Bed successful
[2017-06-10] MEDS ORDERED: IOHEXOL 350 MG/ML 50 ML BTL (for Cath Lab) OTHER ONE (09:36)
[2017-06-10] MEDS ORDERED: IOHEXOL 350 MG/ML 100 ML BTL (for Cath Lab) OTHER ONE (09:36)
[2017-06-10] MEDS: ASPIRIN 81 MG CHEW TAB CHEW SCH (09:57)
[2017-06-10] MEDS: SULFAMETHOXAZOLE-TRIMETHOPRIM DS 800-160 MG TAB PO SCH ×2 (09:57→21:09)
[2017-06-10] MEDS ORDERED: BACITRACIN OINT 0.9 GM PKT TOP ONE (10:00)
[2017-06-10] MEDS ORDERED: BIVALIRUDIN INJ 250 MG in SODIUM CHLORIDE 0.9% INJ 50 ML IV SCH (10:00)
--- NOTE | 2017-06-10 10:03 | MB ---
cc: JOAN SORENSEN DATE OF CONSULTATION 06/10/2017 INDICATION [id number] [place]. HISTORY OF PRESENT ILLNESS This 61-year-old gentleman has a history of degenerative joint disease, dyslipidemia, and hypertension. He awoke yesterday a.m. with this feeling of heartburn. He described it in the middle of his chest. It did not radiate towards the jaw or the arm. He did have some associated diaphoresis. He did have some palpitations. He called his primary care doctor after he noted after checking his blood pressure, his heart rate was quite high. He said it read as high as 190 beats per minute. He called EMS and upon arrival, his heart rate was much improved in the 180's, but by the time he arrived back to the emergency department, he had rapid ventricular rate and atrial fibrillation at 120-130 beats a minute. He was initially on a Cardizem drip. His initial troponin was 0.2, but he bumped up to troponin of 2.0. He says chest pain has subsided once his heart rate was improved. We were consulted for further recommendation. PAST MEDICAL HISTORY 1. Degenerative joint disease 2. Dyslipidemia 3. Hypertension REPORTED MEDICATIONS Bactrim ALLERGIES LISINOPRIL REVIEW OF SYSTEMS A 12-point reviews was performed and is negative unless otherwise as noted in the history of present illness. FAMILY HISTORY Denies any family history of early coronary artery disease or sudden cardiac . SOCIAL HISTORY Marijuana use daily, but no other illicit drug use. Rare alcohol use one to two drinks a month. He denies any alcohol use. Denies any tobacco use. PHYSICAL EXAMINATION VITAL SIGNS: Temperature is normal, heart rate is 70, blood pressure 149/89 mmHg. GENERAL: Alert and oriented times three in no acute distress. HEENT: Exam shows pupils reactive to light and accommodation. Extraocular movements are intact. NECK: No elevation in jugular venous distension, thyromegaly, lymphadenopathy or carotid bruits. LUNGS: Clear to auscultation bilaterally. CARDIOVASCULAR: Irregular irregular rhythm without murmurs, rubs, or gallops. ABDOMEN: Nontender, nondistended. Good bowel sounds. No hepatosplenomegaly. EXTREMITIES: Show no clubbing, cyanosis or edema. Good peripheral pulses. Cranial nerves intact. Motor sensory grossly intact. LABORATORY DATA WBC 7.2, hemoglobin 15.1, platelet count 190, INR 0.9. Chemistries shows a sodium 140, potassium 3.8. Creatinine 0.92, troponin 1.99, LDL 103. Electrocardiogram, atrial fibrillation, rapid ventricular rate, nonspecific ST-T wave changes. ASSESSMENT 1. Buj-PW-pwlevdxva [place] 2. Atrial fibrillation with rapid ventricular rate. 3. Hypertension, hyperlipidemia PLAN Discussed several options. His elevated troponin may be demand mediated given his tachycardia. We still had some intermittent symptoms despite heart rate being better controlled on initial arrival. Electrocardiogram shows some nonspecific changes. Given the option of a stress test versus cardiac catheterization, the patient decided to proceed forward with cardiac catheterization for more a definitive diagnosis and save time for disposition to home. He is on a heparin drip. We will hold that in anticipation of bringing to the cardiac catheterization lab. We will titrate off the Cardizem and initiate beta blockade. His CHADS-VASc score is a 2 for hypertension and suspected vascular disease. He will likely need anticoagulation. He states at one point back in 2009, he had an arrhythmia, but he does not recall the term atrial fibrillation. He may spontaneously convert in the short term. We will await 2-D echocardiogram results to rule out any significant valvular heart disease. MD MARICRUZ Lockwood/DEVON /9:25 AM /9:45 AM
--- NOTE | 2017-06-10 10:17 | MA ---
cc: NITHIN SORENSEN DATE 06/10/2017 INDICATION [id number]. PROCEDURE PERFORMED 1. Fluoroscopy with interpretation. 2. Left heart catheterization. 3. Coronary angiography. 4. Percutaneous endovascular stenting with drug-eluting stent to the second obtuse marginal branch. METHOD The risks, benefits and alternatives were discussed with the patient. The patient understood and consented to the patient. The patient was brought to the catheterization lab and placed on the catheterization table. The right wrist was prepped and draped in sterile fashion. The right wrist was anesthetized with 2% lidocaine. Right radial artery was cannulated and a 6-Mongolian, 7-cm sheath was placed without difficulty. 100 mcg of intracoronary nitroglycerin was administered and 3000 units of intravenous heparin. LEFT HEART CATHETERIZATION Intraventricular hemodynamics measured at 114/10 mmHg. Left ventricular end-diastolic pressure 20 mmHg. No significant aortic stenosis by transaortic valvular pullback gradient. CORONARY ANGIOGRAPHY 1. Left main coronary has minor luminal irregularities. 2. Left anterior descending coronary is a large caliber size vessel, has minor luminal irregularities proximally and in the mid-segment. There is a small diagonal branch which has minor luminal irregularities. 3. Circumflex has minor luminal irregularities proximally. There is a first obtuse marginal branch which is angiographically normal. The midsegment of the left circumflex coronary artery is mildly aneurysmal. There is a second obtuse marginal branch with a 90% stenosis in the proximal segment. 4. The right coronaries has moderate disease in the mid-segment 50%, also some mild to moderate disease rather diffuse through the posterolateral and posterior descending branches. PERCUTANEOUS INTERVENTION Left coronary circulation is selectively engaged using 6-Mongolian AL-3 guide catheter, 0.014-inch, 180-cm [place] wire was navigated down the distal second obtuse marginal branch. A 3.0 x 20-mm Euphora balloon was deployed on two sequential inflations in the second obtuse marginal branch. Repeat angiography showed severe residual stenosis. AngioMax was utilized throughout the entire procedure to maintain appropriate coagulation. A 3.5 x 38-mm RX Resolute [place] stent was deployed in the first obtuse marginal branch. A 4.5 x 15-mm RX NC-balloon was deployed in the proximal segment of the stent to 14 atmospheres given the size discrepancy of the proximal and distal vessel transition. Repeat angiography showed no residual stenosis, SEBASTIAN-3 flow. The wires were removed, guide catheter removed. HemoBand applied. CONCLUSION 1. Severe single-vessel coronary artery disease involving the second obtuse marginal branch. 2. Successful percutaneous intervention with drug-eluting stent to the second obtuse marginal branch. 3. Normal left-sided filling pressures. PLAN 1. The patient will be monitored closely for any post-procedural complications. 2. We will initiate aspirin and Plavix. 3. He also be initiated on beta-valerie and atorvastatin. 4. Hopefully the beta-valerie we will control his heart rate. If not we can either titrate or add Cardizem. 5. Tomorrow we will initiate anticoagulation and he will likely go home on triple therapy as long as he has no bleeding complications. 6. We will get a 2-D echocardiogram. Nithin Sorensen MD SM/SSB /9:21 AM /9:34 AM
[2017-06-10] MEDS: METOPROLOL TARTRATE 25 MG TAB PO SCH ×2 (10:30→21:09)
[2017-06-10] MEDS ORDERED: LIDOCAINE 2% JELLY 5 ML TUBE TOPICAL PRN (10:30)
--- NOTE | 2017-06-10 15:59 | ECHRPT ---
Indication: a fib/flutter CONCLUSIONS The left ventricular systolic function is low normal with an estimated ejection fraction in the rang e of 50- 55%. Normal left ventricular size. Mild mitral valve regurgitation. No aortic valve regurgitation. There is mild tricuspid valve regurgitatio The pulmonary valve is not well visualized. BP: / HR: Rhythm: Technical Quality:Technically difficult study FINDINGS LEFT VENTRICLE The left ventricular systolic function is low normal with an estimated ejection fraction in the rang e of 50- 55%. Normal left ventricular size. RIGHT VENTRICLE Normal right ventricular size and systolic function. LEFT ATRIUM The left atrial size is normal. RIGHT ATRIUM The right atrial size is normal. ATRIAL SEPTUM Normal atrial septal thickness without atrial level shunting by limited color doppler interrogation. AORTA The aortic root and proximal ascending aorta are normal in size on limited imaging. MITRAL VALVE Structurally normal mitral valve. Mild mitral valve regurgitation. AORTIC VALVE Trileaflet aortic valve. No aortic valve regurgitation. TRICUSPID VALVE Structurally normal tricuspid valve. There is mild tricuspid valve regurgitatio PULMONARY VALVE The pulmonary valve is not well visualized. VESSELS The inferior vena cava is normal in size. PERICARDIUM No pericardial effusion. Nasreen Hyde MD, FACC (Electronically Signed) Final Date:10 June 2017 15:58
--- NOTE | 2017-06-10 16:53 | PD.WCN.NOT ---
Wound Consult Description: Consult for wound management of back per TONO Vazquez Communicated with: Patient RN TONO Vazquez Recommendation: Every other day until sutures are removed: Gently cleanse sutures with NS and pat dry with gauze Apply single layer oil emulsion gauze over intact sutures and cover with dry cover dressing Additional Information: Patient seen on [facility] for Intact sutures noted to patient back. 8 sutures noted medially and 8 sutures noted horizontally making a backwards L shape. Surgical wounds were closed using primary intention are approximated and periwounds are unremarkable. NS was used to cleanse suture lines and a dressing of oil emulsion and dry cover was placed to provide a moist clean environment as requested by the patient. Radha Garcia [facility] Jun 10, 2017 16:53
--- NOTE | 2017-06-10 20:10 | EKG ---
Date Performed: 06/09/2017 Time Performed: 13:20:30 PTAGE: 61 years EKG: ATRIAL FIBRILLATION WITH RAPID VENTRICULAR RESPONSE ABNORMAL RHYTHM ECG NO PREVIOUS TRACING DOCTOR: Nasreen Hyde Interpretating Date/Time 06/10/2017 20:09:18
--- NOTE | 2017-06-10 20:12 | EKG ---
Date Performed: 06/10/2017 Time Performed: 06:14:38 PTAGE: 61 years EKG: Normal Sinus rhythm nonspecific ST T wave changes Compared to prior tracing no significant change Normal ECG PREVIOUS TRACING : 06/09/2017 21.24 DOCTOR: Nasreen Hyde Interpretating Date/Time 06/10/2017 20:11:19
--- NOTE | 2017-06-10 20:12 | EKG ---
Date Performed: 06/09/2017 Time Performed: 21:24:50 PTAGE: 61 years EKG: Sinus rhythm When compared to prior ekg patient converted back to sinus rhythm. Normal ECG PREVIOUS TRACING : 06/09/2017 13.20 DOCTOR: Nasreen Hyde Interpretating Date/Time 06/10/2017 20:10:33
[2017-06-10] MEDS ORDERED: ATORVASTATIN 40 MG TAB PO SCH (21:00)
[2017-06-10] MEDS: SODIUM CHLORIDE 0.9% FLUSH 10 ML FLUSH IV FLUSH SCH (21:00)
[2017-06-10] MEDS: TEMAZEPAM 15 MG CAP PO PRN (21:15)
--- NOTE | 2017-06-10 21:18 | EKG ---
Date Performed: 06/10/2017 Time Performed: 12:02:32 PTAGE: 61 years EKG: Sinus rhythm Inferior ST-T changes are nonspecific Borderline ECG Compared to prior tracing no significant change DOCTOR: Kendal Garcia Interpretating Date/Time 06/10/2017 21:17:32
[2017-06-11] VITALS (13 sets, daily range): BP systolic 131–149; BP diastolic 97; PULSE 67–81; RESP 18; TEMP 98.3; O2SAT 97
[2017-06-11 06:29] LABS: AUTOMATED NEUTROPHIL # 4.8 TH/MM3 (1.8-7.7); BASOPHIL % 0.3 % (0.0-2.0); EOSINOPHIL # 0.2 TH/MM3 (0-0.4); EOSINOPHIL % 2.4 % (0.0-4.0); HEMATOCRIT 45.2 % (39.0-51.0); HEMO FLAGS DIFF FINAL; LYMPH % 21.6 % (9.0-44.0); LYMPHOCYTE # 1.6 TH/MM3 (1.0-4.8); MEAN CELL VOLUME 85.7 FL (80.0-100.0); MEAN CORPUSCULAR HGB CONC 33.8 % (32.0-36.0); MONO % 9.9 % (0.0-8.0); NEUT % 65.8 % (16.0-70.0); PLATELET COUNT 192 TH/MM3 (150-450); RED BLOOD COUNT 5.27 MIL/MM3 (4.50-5.90); RED CELL DISTRIBUTION WIDTH 13.8 % (11.6-17.2); WHITE BLOOD COUNT 7.3 TH/MM3 (4.0-11.0)
[2017-06-11 07:01] LABS: POTASSIUM 3.6 MEQ/L (3.5-5.1)
[2017-06-11 07:04] LABS: HDL CHOLESTEROL 48.4 MG/DL (40.0-60.0)
[2017-06-11 07:55] LABS: CKMB 37.8 NG/ML (0.5-3.6)
--- NOTE | 2017-06-11 08:44 | HHI.PR ---
Subjective Remarks pt is asking alot of questions today I have answered every on to best of my knowledge. Objective Vitals heart reg lung cta abd s/nt ext no edema Vital Signs Date Time Temp Pulse Resp B/P (MAP) Pulse Ox O2 Delivery O2 Flow Rate FiO2 06/11/17 07:43 98.3 81 18 149/97 (114) 97 06/11/17 06:20 77 06/11/17 06:03 78 18 131/97 (108) 06/11/17 05:30 79 06/11/17 04:35 70 06/11/17 03:50 70 06/11/17 02:06 67 06/11/17 01:00 67 06/10/17 23:40 70 20 141/92 (108) 96 06/10/17 23:00 58 06/10/17 22:00 75 06/10/17 21:07 98.6 83 20 151/94 (113) 98 06/10/17 20:40 84 06/10/17 17:48 98 21 06/10/17 17:00 79 06/10/17 16:00 84 06/10/17 15:00 85 06/10/17 15:00 98.6 85 20 141/83 (102) 98 06/10/17 14:00 64 06/10/17 13:00 66 06/10/17 12:00 69 06/10/17 11:00 98.0 64 20 121/81 (94) 98 06/10/17 11:00 64 06/10/17 10:00 68 06/10/17 10:00 68 20 126/86 (99) 96 Result Diagram: 06/11/17 0500 06/11/17 0500 Imaging Last Impressions Chest X-Ray 06/09/17 1317 Signed Impressions: Service Date/Time: Friday, June 09, 2017 13:32 - CONCLUSION: No acute disease. Romain Curry MD FACR A/P Problem List: (1) New onset a-fib ICD Codes: I48.91 - Unspecified atrial fibrillation Status: Acute Plan: 1. new afib/rvr. converted to nsr 2. nstemi. s/p maxim x 2 om2 3. htn 4. hyperlipidemia pt upset as he is questioning stent placement...he is reading alot of literature and focused on every little potential complication. I have explained the [facility] findings, the stent, his cardiac medications in detail. He is at the moment irrational in my opinion. I have asked dr Zamudio to speak with him before d/c today. d/c on asa/plavix/bb/statin f/u office. (2) Non-STEMI (non-ST elevated myocardial infarction) ICD Codes: I21.4 - Non-ST elevation (NSTEMI) myocardial infarction Status: Acute (3) Atrial fibrillation with RVR ICD Codes: I48.91 - Unspecified atrial fibrillation Status: Acute (4) HTN (hypertension) ICD Codes: I10 - Essential (primary) hypertension Status: Chronic (5) Dyslipidemia ICD Codes: E78.5 - Hyperlipidemia, unspecified Status: Chronic Ha Kam MD Jun 11, 2017 08:44
[2017-06-11] MEDS ORDERED: ATOR40TA16 PO (08:46)
[2017-06-11] MEDS ORDERED: METO25TA3 PO (08:46)
[2017-06-11] MEDS ORDERED: ASPI81CH25 CHEW (08:46)
[2017-06-11] MEDS ORDERED: PLAV75TA29 PO (08:46)
--- NOTE | 2017-06-11 08:47 | HHI.DCPOC ---
Discharge Care Plan Diagnosis: (1) Non-STEMI (non-ST elevated myocardial infarction) (2) Atrial fibrillation with RVR Goals to Promote Your Health * To prevent worsening of your condition and complications * To maintain your health at the optimal level Directions to Meet Your Goals Take your medications as prescribed Follow your dietary instruction Follow activity as directed Keep your appointments as scheduled Take your immunizations and boosters as scheduled If your symptoms worsen call your PCP, if no PCP go to Urgent Care Center or Emergency Room Smoking is Dangerous to Your Health. Avoid second hand smoke Call the 24-hour hour crisis hotline for domestic abuse at Ha Kam MD Jun 11, 2017 08:47
[2017-06-11] MEDS ORDERED: ASPI325T PO (08:49)
[2017-06-11] MEDS: DOCUSATE SODIUM 50 MG/SENNA 8.6 MG TAB PO SCH (09:00)
[2017-06-11] MEDS ORDERED: CLOPIDOGREL 75 MG TAB PO SCH (09:00)
[2017-06-11] MEDS: SULFAMETHOXAZOLE-TRIMETHOPRIM DS 800-160 MG TAB PO SCH (09:13)
[2017-06-11] MEDS: METOPROLOL TARTRATE 25 MG TAB PO SCH (09:13)
[2017-06-11] MEDS: ASPIRIN 81 MG CHEW TAB CHEW SCH (09:13)
[2017-06-11] MEDS: SODIUM CHLORIDE 0.9% FLUSH 10 ML FLUSH IV FLUSH SCH (09:14)
--- NOTE | 2017-06-11 10:37 | PD.CARD.PN ---
Subjective Subjective Remarks tons of questions this am no complaints Objective Medications Current Medications Medications (Trade) Dose Ordered Sig/Anny Route Start Time Stop Time Status Last Admin (NS Flush) 2 ml UNSCH PRN IV FLUSH 06/09/17 15:15 (NS Flush) 2 ml BID IV FLUSH 06/09/17 21:00 06/11/17 09:14 (Tylenol) 650 mg Q4H PRN PO 06/09/17 15:15 06/09/17 21:34 (Zofran Inj) 4 mg Q6H PRN IVP 06/09/17 15:15 (Narcan Inj) 0.4 mg UNSCH PRN IV PUSH 06/09/17 15:15 (Joaquina-Colace) 1 tab BID PO 06/09/17 21:00 (Milk Of Magnesia Liq) 30 ml Q12H PRN PO 06/09/17 15:15 (Aspirin Chew) 81 mg DAILY CHEW 06/10/17 09:00 06/11/17 09:13 ([place] 5-325 Mg) 1 tab Q4H PRN PO 06/09/17 21:15 (Restoril) 15 mg HS PRN PO 06/09/17 21:15 06/10/17 21:15 (Nitrostat Sl) 0.4 mg Q5M PRN SL 06/09/17 21:15 (Bactrim Ds 800-160 Mg) 1 tab BID PO 06/10/17 09:00 06/11/17 09:13 (Morphine Inj) 2 mg Q30M PRN IV PUSH 06/10/17 09:30 (Plavix) 75 mg DAILY PO 06/11/17 09:00 06/11/17 09:13 (Lopressor) 25 mg Q12HR PO 06/10/17 10:30 06/11/17 09:13 (Lipitor) 40 mg HS PO 06/10/17 21:00 06/10/17 21:09 Vital Signs / I&O Vital Signs Date Time Temp Pulse Resp B/P (MAP) Pulse Ox O2 Delivery O2 Flow Rate FiO2 06/11/17 10:00 80 06/11/17 09:00 72 06/11/17 08:00 80 06/11/17 07:43 98.3 81 18 149/97 (114) 97 06/11/17 07:00 80 06/11/17 06:20 77 06/11/17 06:03 78 18 131/97 (108) 06/11/17 05:30 79 06/11/17 04:35 70 06/11/17 03:50 70 06/11/17 02:06 67 06/11/17 01:00 67 06/10/17 23:40 70 20 141/92 (108) 96 06/10/17 23:00 58 06/10/17 22:00 75 06/10/17 21:07 98.6 83 20 151/94 (113) 98 06/10/17 20:40 84 06/10/17 17:48 98 21 06/10/17 17:00 79 06/10/17 16:00 84 06/10/17 15:00 85 06/10/17 15:00 98.6 85 20 141/83 (102) 98 06/10/17 14:00 64 06/10/17 13:00 66 06/10/17 12:00 69 06/10/17 11:00 98.0 64 20 121/81 (94) 98 06/10/17 11:00 64 I/O 06/10/17 06/10/17 06/10/17 06/11/17 06/11/17 06/11/17 07:00 15:00 23:00 07:00 15:00 23:00 Intake Total 960 ml 980 ml 700 ml Output Total 850 ml 1000 ml 850 ml Balance 110 ml -20 ml -150 ml Intake Oral 960 ml 480 ml 700 ml IV Total 500 ml Output Urine Total 850 ml 1000 ml 850 ml Physical Exam GENERAL: SKIN: Warm and dry. HEAD: Normocephalic. EYES: No scleral icterus. No injection or drainage. NECK: Supple, trachea midline. No JVD or lymphadenopathy. CARDIOVASCULAR: Regular rate and rhythm without murmurs, gallops, or rubs. RESPIRATORY: Breath sounds equal bilaterally. No accessory muscle use. GASTROINTESTINAL: Abdomen soft, non-tender, nondistended. MUSCULOSKELETAL: No cyanosis, or edema. BACK: Nontender without obvious deformity. No CVA tenderness. Laboratory Laboratory Tests Test 06/11/17 05:00 White Blood Count 7.3 TH/MM3 Red Blood Count 5.27 MIL/MM3 Hemoglobin 15.3 GM/DL Hematocrit 45.2 % Mean Corpuscular Volume 85.7 FL Mean Corpuscular Hemoglobin 29.0 PG Mean Corpuscular Hemoglobin Concent 33.8 % Red Cell Distribution Width 13.8 % Platelet Count 192 TH/MM3 Mean Platelet Volume 9.6 FL Neutrophils (%) (Auto) 65.8 % Lymphocytes (%) (Auto) 21.6 % Monocytes (%) (Auto) 9.9 % Eosinophils (%) (Auto) 2.4 % Basophils (%) (Auto) 0.3 % Neutrophils # (Auto) 4.8 TH/MM3 Lymphocytes # (Auto) 1.6 TH/MM3 Monocytes # (Auto) 0.7 TH/MM3 Eosinophils # (Auto) 0.2 TH/MM3 Basophils # (Auto) 0.0 TH/MM3 CBC Comment DIFF FINAL Differential Comment Blood Urea Nitrogen 10 MG/DL Creatinine 0.97 MG/DL Random Glucose 87 MG/DL Calcium Level 8.8 MG/DL Sodium Level 140 MEQ/L Potassium Level 3.6 MEQ/L Chloride Level 104 MEQ/L Carbon Dioxide Level 29.0 MEQ/L Anion Gap 7 MEQ/L Estimat Glomerular Filtration Rate 78 ML/MIN Total Creatine Kinase 476 U/L Creatine Kinase MB 37.8 NG/ML Creatine Kinase MB % 7.9 % Triglycerides Level 131 MG/DL Cholesterol Level 190 MG/DL LDL Cholesterol 115 MG/DL HDL Cholesterol 48.4 MG/DL Cholesterol/HDL Ratio 3.92 RATIO Assessment and Plan Assessment and Plan NSTEMI - PCI OM2 KATY. cont asa statin plavix bb. afib - not interested in anticoagulation. CHADSVASC 2. asa 325. BB FU dr Deyvi Sandoval. Nithin Zamudio MD Jun 11, 2017 10:37
--- NOTE | 2017-06-11 15:23 | EKG ---
Date Performed: 06/11/2017 Time Performed: 06:05:46 PTAGE: 61 years EKG: Sinus rhythm Normal ECG PREVIOUS TRACING : 06/10/2017 12.02 Compared to prior tracing no significant change DOCTOR: Kendal Garcia Interpretating Date/Time 06/11/2017 15:22:16
== END 2017-06-11 11:08 | disposition home or self-care (01) | DRG 247 ==
LOC: NEPE 13:10 → NEDA 14:28 → HCIN 17:50
PROVIDERS: ADMIT Hospitalist; ATTEND Hospitalist
PROC: 4A023N7 Measurement of Cardiac Sampling and Pressure, Left Heart, Percutaneous Approach (ICD-10-PCS; 2017-06-10)
PROC: B2111ZZ Fluoroscopy of Multiple Coronary Arteries using Low Osmolar Contrast (ICD-10-PCS; 2017-06-10)
PROC: 027034Z Dilation of Coronary Artery, One Artery with Drug-eluting Intraluminal Device, Percutaneous Approach (ICD-10-PCS; principal; 2017-06-10 08:30)
DX: I21.4 Non-ST elevation (NSTEMI) myocardial infarction (principal); I25.10 Atherosclerotic heart disease of native coronary artery without angina pectoris; I48.91 Unspecified atrial fibrillation; F12.90 Cannabis use, unspecified, uncomplicated; E78.5 Hyperlipidemia, unspecified; I10 Essential (primary) hypertension; M19.90 Unspecified osteoarthritis, unspecified site
CPT/HCPCS: 71010; 80048; 80061; 82550; 82552; 83735; 84484; 85025; 85610; 85730; 92928; 93005; 93306; 93458; 96365; 96375; C1725; C1769; C1874; C1887; C1893; J0583; J1644; J2250; J3010; J7040; Q9967